=== PATIENT | male | born 1940 | race Caucasian/White ===

== ENCOUNTER → 2017-02-13 | Outpatient (CLI) | payer MEDICARE, OTHER ==
--- NOTE | 2017-02-14 18:23 | RADRPT ---
PROCEDURE: XR Knees. CLINICAL INDICATION: Bilateral knee pain. TECHNIQUE: Total of eight views. Weightbearing frontal, oblique, and lateral views of the both kn ees. Patellar views of both knees. COMPARISON: No prior study is available for comparison. FINDINGS: There is no fracture or dislocation. Vascular calcifications are present consistent with atherosclerosis. Surgical clips are present in the soft tissues of the right knee. There are degenerative changes with osteophytes arising from all 3 joint compartment margins bilater ally. There are is bilateral lateral joint compartment narrowing, subarticular sclerosis, and defor mity. There is no lytic or blastic lesion. There is no radiopaque foreign body. IMPRESSION: 1. Atherosclerosis. 2. Prior right knee surgery. 3. 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 RPTAT: QQ .Jimbo Domingo MD, MD Date Time Electronically viewed and signed by .Jimbo Domingo MD, MD on 02/14/2017 18:23 .R/
== END | disposition home or self-care (01) ==
LOC: HKI 13:56
PROVIDERS: ATTEND Orthopaedic Surgery
DX: M25.561 Pain in right knee (principal); M25.562 Pain in left knee; M17.0 Bilateral primary osteoarthritis of knee
CPT/HCPCS: 20610; 73564; G0463; J7327